=== PATIENT | female | born 2000 | race Two or more races ===

== ENCOUNTER 2025-08-05 22:00 | Inpatient (IN) | payer OTHER ==
[~2025-08-05] VITALS: Ht 165.1 cm; Wt 98.9 kg
[2025-08-05 21:37] VITALS: BP 131/79
[2025-08-05] MEDS ORDERED: PRENATABS RX T1 EACH PO (22:02)
[2025-08-05] MEDS ORDERED: ONDANSETRON HCL 2 MG/ML VIAL IV PRN (22:15)
[2025-08-05] MEDS ORDERED: RINGERS SOLUTION,LACTATED 1,000 ML IV SCH (22:15)
[2025-08-05] MEDS ORDERED: MORPHINE SULFATE 4 MG/ML VIAL IV PRN (22:15)
[2025-08-05] MEDS ORDERED: FAMOTIDINE/PF 20 MG/2 ML VIAL IV PRN (22:15)
[2025-08-05 23:10] VITALS: BP 125/69
[2025-08-05 23:23] LABS: BASO % 0.3 % (0.1-1.2); EOS # 0.07 (0.04-0.54); EOS % 0.7 % (0.7-7.0); LYMPH # 2.46 (1.18-3.74); LYMPH % 25.3 % (19.3-53.1); MEAN PLATELET VOLUME 10.60 fl (9.4-12.4); MONO # 0.88 (0.24-0.82); MONO % 9.1 % (4.7-12.5); NEUT # 6.17 (1.56-6.13); NEUT % 63.5 % (34.0-71.1); RED CELL DISTRIBUTION WIDTH 14.2 % (11.6-14.4)
[2025-08-05 23:26] LABS: URINE APPEARANCE Clear; URINE BILIRRUBIN Negative (NEGATIVE); URINE BLOOD Negative; URINE COLOR Yellow; URINE GLUCOSE Negative (NEGATIVE); URINE KETONE Negative (NEGATIVE); URINE LEUKOCYTE Trace; URINE NITRATE Negative; URINE PROTEIN Negative (NEGATIVE); URINE UROBILINOGEN 0.2 E.U./dl
[2025-08-05 23:30] LABS: URINE BACTERIA 719.3 uL (0.0-1933); URINE EPITHELIAL CELLS 25.8 uL (0.0-38.8); URINE WBC 11.6 uL (0.0-23.2)
[2025-08-05 23:38] LABS: URINE CAST 0.00 uL (0.0-1.40); URINE RBC 1.1 uL (0.0-20.8)
[2025-08-05 23:44] LABS: INR < 0.93
[2025-08-05 23:53] LABS: ALT/SGPT 14.0 U/L (12-78); AST/SGOT 18.0 U/L (15-37); BILIRUBIN TOTAL 0.36 mg/dL (0.3-1.2); BUN CREA RATIO 17.0 (7.0-25.0); CREATININE SERUM 0.47 mg/dL (0.55-1.02); GFR 161.46; GLOBULINA 3.9 G/DL (2.4-3.5); GLUCOSE FASTING 78.0 mg/dL (65-100); OSMOLALITY SERUM 278.0 MOSM/KG (275-295)
[2025-08-06 03:55] VITALS: BP 109/65
[2025-08-06 07:50] VITALS: BP 112/64
[2025-08-06 09:12] VITALS: BP 118/64
[2025-08-06] MEDS ORDERED: OXYTOCIN 20 UNITS/500ML RL PIGGYBAG IV ONE (12:22)
[2025-08-06 12:43] VITALS: BP 122/70
[2025-08-06] MEDS ORDERED: OXYTOCIN 20 UNITS/500ML RL PIGGYBAG IV SCH (12:45)
[2025-08-06] MEDS ORDERED: ERYTHROMYCIN BASE OPHT 1GM EACH TUBE OP ONE (13:33)
[2025-08-06] MEDS ORDERED: LIDOCAINE HCL 1% 10ML VIAL ONE (13:33)
[2025-08-06] MEDS ORDERED: CHLORHEXIDINE GLUCONATE 120 ML BOTTLE TOP ONE (13:33)
[2025-08-06] MEDS ORDERED: OXYTOCIN 20 UNITS/1000ML RL PIGGYBAG IV ONE ×2 (13:33→16:44)
[2025-08-06 15:36] VITALS: BP 115/58
[2025-08-06] MEDS ORDERED: OXYTOCIN 1,000 ML IV SCH (15:45)
[2025-08-06] MEDS ORDERED: CHLORHEXIDINE GLUCONATE 120 ML BOTTLE TOP SCH (15:45)
[2025-08-06] MEDS ORDERED: DOCUSATE SODIUM 100MG CAP PO SCH (17:00)
[2025-08-06 18:44] VITALS: BP 103/67
[2025-08-06 22:17] LABS: BASO % 0.1 % (0.1-1.2); EOS # 0.00 (0.04-0.54); EOS % 0.0 % (0.7-7.0); LYMPH # 1.88 (1.18-3.74); LYMPH % 10.0 % (19.3-53.1); MEAN PLATELET VOLUME 10.60 fl (9.4-12.4); MONO # 1.07 (0.24-0.82); MONO % 5.7 % (4.7-12.5); NEUT # 15.75 (1.56-6.13); NEUT % 83.5 % (34.0-71.1); RED CELL DISTRIBUTION WIDTH 14.1 % (11.6-14.4)
[2025-08-07 01:31] VITALS: BP 96/60
[2025-08-07 08:00] VITALS: BP 112/64
[2025-08-07] MEDS ORDERED: CARBOPROST TROMETHAMINE 250 MCG/ML AMPUL IM ONE (08:00)
[2025-08-07] MEDS ORDERED: PNV,CALCIUM 72/IRON/FOLIC ACID 1 TAB TABLET PO SCH (09:00)
[2025-08-07] MEDS ORDERED: CARBOPROST TROMETHAMINE 250 MCG/ML AMPUL IM NR (10:45)
[2025-08-07 11:54] LABS: BASO % 0.2 % (0.1-1.2); EOS # 0.01 (0.04-0.54); EOS % 0.1 % (0.7-7.0); LYMPH # 1.95 (1.18-3.74); LYMPH % 14.0 % (19.3-53.1); MEAN PLATELET VOLUME 10.70 fl (9.4-12.4); MONO # 1.06 (0.24-0.82); MONO % 7.6 % (4.7-12.5); NEUT # 10.77 (1.56-6.13); NEUT % 77.4 % (34.0-71.1); RED CELL DISTRIBUTION WIDTH 14.3 % (11.6-14.4)
[2025-08-07 19:28] VITALS: BP 105/71
[2025-08-07] MEDS ORDERED: SIMETHICONE 125 MG CAPSULE PO SCH (21:00)
[2025-08-08] VITALS: BP 93/60
[2025-08-08 08:18] VITALS: BP 110/77
[2025-08-08] MEDS ORDERED: COLACE100 MG PO (08:35)
[2025-08-08] MEDS ORDERED: SIMETHICONE125 M1 PO (08:35)
[2025-08-08] MEDS ORDERED: IBUPROFEN800 MG PO (08:35)
== END 2025-08-08 17:28 | disposition home or self-care (01) | DRG 807 ==
LOC: LDR 22:00 → OB/GYN 08-06 15:49
PROVIDERS: ADMIT Obstetrics & Gynecology; ATTEND Obstetrics & Gynecology
PROC: 4A1HXCZ Monitoring of Products of Conception, Cardiac Rate, External Approach (ICD-10-PCS; 2025-08-05)
PROC: 10E0XZZ Delivery of Products of Conception, External Approach (ICD-10-PCS; principal; 2025-08-06)
PROC: 0HQ9XZZ Repair Perineum Skin, External Approach (ICD-10-PCS; 2025-08-06)
DX: O70.0 First degree perineal laceration during delivery (principal); Z37.0 Single live birth; Z3A.38 38 weeks gestation of pregnancy